=== PATIENT | female | born 1995 | race Caucasian/White ===

== ENCOUNTER 2019-05-01 16:58 | Emergency (ER) | payer OTHER, MEDICAID ==
[~2019-05-01] VITALS: Ht 157.5 cm; Wt 44.5 kg
[2019-05-01 17:20] LABS: URINE BILIRUBIN NEGATIVE (Negative); URINE BLOOD NEGATIVE (Negative); URINE CLARITY CLEAR; URINE COLOR YELLOW; URINE GLUCOSE-RANDOM NEGATIVE (Negative); URINE KETONES NEGATIVE (Negative); URINE LEUKOCYTES-REFLEX TRACE (Negative); URINE NITRITE-REFLEX POSITIVE (Negative); URINE PROTEIN TRACE (Negative); URINE SPECIFIC GRAVITY 1.015 (1.005-1.030); URINE UROBILINOGEN 0.2 E.U./dl (0.2-1.0)
[2019-05-01 17:27] LABS: BACTERIA-REFLEX >30 Many /HPF (None Seen); MUCUS 0-3 Light strn/LPF (None Seen); SQUAMOUS >10 Many /LPF (0-3)
[2019-05-01 17:28] LABS: CASTS None Seen /LPF (None Seen)
[2019-05-01 17:29] LABS: CRYSTALS None Seen /LPF (None Seen); URINE RBC None Seen /HPF (0-2)
[2019-05-01] MEDS ORDERED: PHENAZOPYRIDIN200 M2 PO (17:34)
[2019-05-01] MEDS ORDERED: BACTRIM DS TAB1 EACH PO (17:34)
[2019-05-01 17:48] VITALS: BP 106/68
== END 2019-05-01 17:49 | disposition home or self-care (01) ==
LOC: M.ERS 16:58
PROVIDERS: Nurse Practitioner Family
DX: N39.0 Urinary tract infection, site not specified (principal); F17.210 Nicotine dependence, cigarettes, uncomplicated; Z87.440 Personal history of urinary (tract) infections

== ENCOUNTER 2020-03-14 06:37 | Emergency (ER) | payer OTHER, MEDICAID ==
[~2020-03-14] VITALS: Ht 157.5 cm; Wt 46.3 kg
[~2020-03-14 06:37] MED LIST: BACTRIM DS TAB1 EACH PO; PHENAZOPYRIDIN200 M2 PO
[2020-03-14 06:47] VITALS: BP 100/54
[2020-03-14 07:42] LABS: URINE BILIRUBIN NEGATIVE (Negative); URINE BLOOD NEGATIVE (Negative); URINE CLARITY CLEAR; URINE COLOR YELLOW; URINE GLUCOSE-RANDOM NEGATIVE (Negative); URINE KETONES NEGATIVE (Negative); URINE LEUKOCYTES-REFLEX NEGATIVE (Negative); URINE NITRITE-REFLEX NEGATIVE (Negative); URINE PROTEIN NEGATIVE (Negative); URINE SPECIFIC GRAVITY 1.025 (1.005-1.030); URINE UROBILINOGEN 0.2 E.U./dl (0.2-1.0)
[2020-03-14 07:42] LABS: ABSOLUTE BASOPHILS 0.1 thou/uL (0.0-0.2); ABSOLUTE EOSINOPHILS 0.3 thou/uL (0.0-0.7); ABSOLUTE LYMPHOCYTES 2.3 thou/uL (0.8-5.3); ABSOLUTE MONOCYTES 0.9 thou/uL (0.0-1.2); ABSOLUTE NEUTROPHILS 6.1 thou/uL (1.6-8.1); BASOPHILS 0.8 %; EOSINOPHILS 2.6 %; HEMATOCRIT 33.4 % (37.0-47.0); HEMOGLOBIN 11.4 gm/dL (12.0-15.0); LYMPHOCYTES 24.1 %; MCH 32.1 pg (26.0-34.0); MCHC 34.1 g/dL (28.0-37.0); MCV 94.2 fL (80.0-100.0); MONOCYTES 9.4 %; MPV 7.6 fl. (7.2-11.1); NUCLEATED RBCS 0 /100WBC; PLATELET COUNT* 290 thou/uL (150-400); POLYS 63.1 %; RBC 3.55 mil/uL (4.20-5.00); RDW-CV 13.3 % (10.5-14.5); WBC 9.7 thou/uL (4.0-11.0)
[2020-03-14 07:53] LABS: CALCIUM 8.5 mg/dL (8.5-10.1); CREATININE 0.5 mg/dL (0.6-1.3); POTASSIUM 3.9 mmol/L (3.5-5.1)
[2020-03-14 07:57] LABS: TOTAL BILIRUBIN 0.2 mg/dL (<0.1-1.0); TOTAL PROTEIN 6.4 g/dL (6.4-8.2)
== END 2020-03-14 10:45 | disposition left against medical advice (07) ==
LOC: M.ERS 06:37
PROVIDERS: Emergency Medicine Emergency Medical Services
DX: O20.0 Threatened abortion (principal); O23.592 Infection of other part of genital tract in pregnancy, second trimester; B96.89 Other specified bacterial agents as the cause of diseases classified elsewhere; O99.332 Smoking (tobacco) complicating pregnancy, second trimester; Z3A.18 18 weeks gestation of pregnancy; Z88.6 Allergy status to analgesic agent

== ENCOUNTER 2020-12-27 06:30 | Emergency (ER) | payer OTHER, MEDICAID ==
[~2020-12-27] VITALS: Ht 157.5 cm; Wt 48.5 kg
[2020-12-27] MEDS ORDERED: PAROXETINE CR25 MG PO (06:44)
[2020-12-27] MEDS ORDERED: HYDROXYZINE HCL25 M2 PO (06:44)
[2020-12-27] MEDS ORDERED: AMBIEN5 MG PO (06:45)
[2020-12-27 06:58] LABS: URINE BILIRUBIN NEGATIVE (Negative); URINE BLOOD NEGATIVE (Negative); URINE CLARITY CLEAR; URINE COLOR YELLOW; URINE GLUCOSE-RANDOM NEGATIVE (Negative); URINE KETONES NEGATIVE (Negative); URINE LEUKOCYTES-REFLEX TRACE (Negative); URINE NITRITE-REFLEX NEGATIVE (Negative); URINE PROTEIN NEGATIVE (Negative); URINE SPECIFIC GRAVITY 1.025 (1.005-1.030); URINE UROBILINOGEN 0.2 E.U./dl (0.2-1.0)
[2020-12-27 07:01] LABS: BACTERIA-REFLEX 1-9 Few /HPF (None Seen); CASTS None Seen /LPF (None Seen); CRYSTALS None Seen /LPF (None Seen); SQUAMOUS 0-3 Few /LPF (0-3); URINE RBC 0-2 Rare /HPF (0-2); URINE WBC-REFLEX 0-5 Rare /HPF (0-5)
[2020-12-27 07:02] LABS: HEMATOCRIT 39.2 % (37.0-47.0); HEMOGLOBIN 13.5 gm/dL (12.0-15.0); MCH 31.2 pg (26.0-34.0); MCHC 34.4 g/dL (28.0-37.0); MCV 90.8 fL (80.0-100.0); MPV 6.7 fl. (7.2-11.1); RBC 4.32 mil/uL (4.20-5.00)
[2020-12-27 07:42] LABS: CALCIUM 8.7 mg/dL (8.5-10.1); CREATININE 0.8 mg/dL (0.6-1.3)
[2020-12-27 07:47] LABS: ALBUMIN 4.2 g/dL (3.4-5.0); TOTAL BILIRUBIN 0.6 mg/dL (<0.1-1.0); TOTAL PROTEIN 7.3 g/dL (6.4-8.2)
[2020-12-27] MEDS ORDERED: ZOFRAN ODT4 MG DISSOLVE (09:29)
[2020-12-27] MEDS ORDERED: HYDROCODON-ACE1 EAC7 PO (09:29)
[2020-12-27] MEDS ORDERED: BACTRIM DS TAB1 EAC1 PO (09:29)
[2020-12-27 09:42] VITALS: BP 108/67
== END 2020-12-27 09:43 | disposition home or self-care (01) ==
LOC: M.ERS 06:30
PROVIDERS: Personal Emergency Response Attendant
DX: N83.202 Unspecified ovarian cyst, left side (principal); N39.0 Urinary tract infection, site not specified; Z88.6 Allergy status to analgesic agent; Z79.899 Other long term (current) drug therapy

== ENCOUNTER 2021-01-19 05:55 | Emergency (ER) | payer OTHER, MEDICAID ==
[~2021-01-19] VITALS: Ht 157.5 cm; Wt 49.4 kg
[~2021-01-19 05:55] MED LIST changes: +AMBIEN5 MG PO; +BACTRIM DS TAB1 EAC1 PO; +HYDROCODON-ACE1 EAC7 PO; +HYDROXYZINE HCL25 M2 PO; +PAROXETINE CR25 MG PO; +ZOFRAN ODT4 MG DISSOLVE
[2021-01-19] MEDS ORDERED: CIPRODEX OTIC7.5 ML OTIC (06:10)
[2021-01-19] MEDS ORDERED: TRAMADOL 50 MG50 MG PO (06:10)
[2021-01-19] MEDS ORDERED: CIPRO HC OTIC S10 ML OTIC (06:11)
[2021-01-19 06:17] VITALS: BP 109/74
== END 2021-01-19 06:18 | disposition home or self-care (01) ==
LOC: M.ERS 05:55
DX: H65.91 Unspecified nonsuppurative otitis media, right ear (principal); H72.91 Unspecified perforation of tympanic membrane, right ear; F41.9 Anxiety disorder, unspecified; F32.9 Major depressive disorder, single episode, unspecified; Z79.899 Other long term (current) drug therapy; Z88.5 Allergy status to narcotic agent

== ENCOUNTER 2021-02-05 09:45 | Emergency (ER) | payer OTHER, MEDICAID ==
[~2021-02-05] VITALS: Ht 157.5 cm; Wt 47.6 kg
[~2021-02-05 09:45] MED LIST changes: +CIPRO HC OTIC S10 ML OTIC; +CIPRODEX OTIC7.5 ML OTIC; +TRAMADOL 50 MG50 MG PO
[2021-02-05] MEDS ORDERED: DULOXETINE HCL20 MG (10:02)
[2021-02-05] MEDS ORDERED: SEROQUEL 100 M100 M1 (10:02)
[2021-02-05] MEDS ORDERED: CEPHALEXIN500 MG PO (10:36)
[2021-02-05] MEDS ORDERED: TRAMADOL 50 MG50 MG PO (10:36)
[2021-02-05 10:48] VITALS: BP 115/64
== END 2021-02-05 10:48 | disposition home or self-care (01) ==
LOC: M.ERS 09:45
DX: H92.01 Otalgia, right ear (principal); H72.91 Unspecified perforation of tympanic membrane, right ear; F41.9 Anxiety disorder, unspecified; F32.9 Major depressive disorder, single episode, unspecified; F20.9 Schizophrenia, unspecified; F17.210 Nicotine dependence, cigarettes, uncomplicated; Z98.890 Other specified postprocedural states; Z79.899 Other long term (current) drug therapy; Z88.6 Allergy status to analgesic agent